=== PATIENT | female | born 1975 | race Caucasian/White ===

== ENCOUNTER 2016-09-26 23:19 | Emergency (ER) | payer BC, SELFPAY ==
[2016-09-26] MEDS ORDERED: Lidocaine 1% 20 ML MDV ONE (23:36)
[2016-09-26] MEDS ORDERED: Adacel (T-DAP) 0.5 ML VIAL ONE (23:58)
[2016-09-27] MEDS ORDERED: Cephalexin 500 MG CAP ONE (00:16)
[2016-09-27] MEDS ORDERED: Ibuprofen 600 MG TAB ONE (00:24)
--- NOTE | 2016-09-27 00:24 | ERRECORD ---
[facility] EMERGENCY RECORD HPI ABSCESS (23:53 ALMO) CHIEF COMPLAINT: Patient presents for evaluation of swelling, Patient presents for evaluation of pain. HISTORIAN: History provided by patient. LOCATION: Symptoms are localized, most severe to R thumb. QUALITY: Pain is sharp in nature. SEVERITY: Maximum severity of symptoms mild, Currently symptoms are moderate. TIME COURSE: Gradual onset of symptoms, 1, weeks ago, Symptoms are worsening. ASSOCIATED WITH: No associated chills, Associated with drainage, No associated fever, Associated with warmth. EXACERBATED BY: Patient's condition exacerbated by nothing. RELIEVED BY: Patient's condition relieved by nothing. TETANUS: Tetanus status up to date. ROS (23:55 ALMO) CONSTITUTIONAL: Historian denies chills, denies fever. GI: Historian denies nausea, denies vomiting. ALLERGIC/IMMUNOLOGIC: Historian denies frequent infections. NOTES: All systems reviewed, negative except as described above. PAST MEDICAL HISTORY (23:25 MDEB) MEDICAL HISTORY: Flu vaccine not up to date, Tetanus immunization up to date, Past medical history includes neurological disease, ischemic cerebral vascular accident, 2010. FEMALE SURGICAL HISTORY: Surgical history of section, Notes: x1, Surgical history of tonsillectomy, Surgical history of appendectomy, Surgical history of hysterectomy. PSYCHIATRIC HISTORY: No previous psychiatric history. SOCIAL HISTORY: Patient drinks socially, every week, Patient denies drug use, Patient currently uses tobacco, Patient smokes 1 pack per day, Patient drinks socially, every week, Patient denies drug use, Patient currently uses tobacco, smokes cigarettes, Patient has smoked for 20 years, Patient smokes 1 pack per day. KNOWN ALLERGIES codeine sulfate: Source: Patient morphine (bulk): Source: Patient CURRENT MEDICATIONS No recorded medications VITAL SIGNS VITAL SIGNS: BP: 156/87, Pulse: 76, Resp: 17, Pain: 7, O2 sat: 100 on Room Air, Time: 09/26/2016 23:23. (23:23 MDEB) Temp: 97.9 (Oral), Time: 09/26/2016 23:27. (23:27 BCRI) PHYSICAL EXAM (23:56 ALMO) CONSTITUTIONAL: Vital signs reviewed. &a-1R&a+25V*p+0X*o4922X*c202B*c15G*c2P*p-0X&a-25V&a+1R Name: Angela Christie : 1975 F41 MedRec: [id number] AcctNum: [id number] Prepared: SunSep 27, 2016 00:34 by Interface Page 1 of 3 pMD [facility] EMERGENCY RECORD HEAD: Head exam included findings of head atraumatic, normocephalic. EYES: Pupils equally round and reactive to light. NECK: no cervical adenopathy. RESPIRATORY CHEST: Respiratory exam included findings of no respiratory distress. CARDIOVASCULAR: Cardiovascular exam included findings of heart rate regular rate and rhythm. NEURO: Neuro exam findings include patient oriented to person, place and time, no focal motor deficits. SKIN: R thumb edema, erythema, tender especially dista to DIP and on ulnar side of nail. LYMPHATIC: Lymphatic exam normal. MEDICATION ADMINISTRATION SUMMARY Drug Name: ibuprofen, Dose Ordered: 1 tab(s), Route: Oral, Status: Given, Time: 00:27 09/27/2016, Drug Name: cephALEXin, Dose Ordered: 2 tab(s), Route: Oral, Status: Given, Time: 00:23 09/27/2016, Drug Name: *Adacel(Tdap Adolesn/Adult)(PF), Dose Ordered: 0.5 mL, Route: Intramuscular, Status: Given, Time: 00:03 09/27/2016, *Additional information available in notes, Detailed record available in Medication Service section. DOCTOR NOTES (23:59 ALMO) TEXT: Paronychia I&D Preped with alcohol Digital block with lidocaine 1% without epi Incision through the cuticule into affected area with Scalpel N 11 Small pus obtained Patient tolerated well. EBL insignificant. PROBLEM LIST No recorded problems DIAGNOSIS (SunSep 27, 2016 00:13 ALMO) FINAL: PRIMARY: paronychia. PRESCRIPTION (SunSep 27, 2016 00:14 ALMO) cephALEXin: CAPSULE : 500 mg : ORAL : Quantity: 1 Unit: tab(s) Route: ORAL Schedule: every 6 hours Dispense: 28 Unit: tab(s) May substitute. Refills: No Refills . NOTES: No Refills. DISPOSITION PATIENT: Disposition Type: Discharge, Disposition: *Discharge Home, Condition: Good. (SunSep 27, 2016 00:12 ALMO) &a-1R&a+25V*p+0X*h1467P*c202B*c15G*c2P*p-0X&a-25V&a+1R Name: Angela Christie : 1975 1 MedRec: [id number] AcctNum: [id number] Prepared: SunSep 27, 2016 00:34 by Interface Page 2 of 3 pMD [facility] EMERGENCY RECORD Patient left the department. (SunSep 27, 2016 00:31 BCRI) Augustine: TAWNY=MD Dragan, Triston BCRI=PATRICIA Cuellar, Betty PACHECO=PATRICIA Chappell, Paola &a-1R&a+25V*p+0X*c7860R*c202B*c15G*c2P*p-0X&a-25V&a+1R Name: Angela Christie : 1975 2 MedRec: [id number] AcctNum: [id number] Prepared: SunSep 27, 2016 00:34 by Interface Page 3 of 3 pMD MTDD
--- NOTE | 2016-09-27 00:39 | PICIS ---
[facility] EMERGENCY RECORD TRIAGE (23:24 MDEB) TRIAGE NOTES: POSSIBLE CELLULITIS TO R THUMB X1 WEEK; PT DENIES DRAINAGE. (23:24 MDEB) PATIENT: NAME: Angela Christie, AGE: 41, GENDER: female, : Sun1975, TIME OF GREET: SunSep 26, 2016 23:20, PREFERRED LANGUAGE: Pashto, ETHNICITY: Not or , FALL RISK: NO, ECODE BILLING MAP: [facility], SSN: [id number], Zip Code: [address], KG WEIGHT: 70.76, , , PERSON ID: [id number], PCP: OOT. (23:24 MDEB) PHONE: . (23:38) COMPLAINT: INFECTION ON RIGHT THUMB. (23:24 MDEB) ADMISSION: URGENCY: 4 Non Urgent, ADMISSION SOURCE: Home, TRANSPORT: CAR, BED: TRIAGE. (23:24 MDEB) SIRS SCORING: Heart Rate 55-109 (0), Temp range 96.8-101.1 (0), respiratory rate 12-24 (0), Mental Status altered: no (0), Yes, Infection or Suspected Infection. (23:25 MDEB) TRIAGE SCREENING: Patient denies suicidal ideation, Patient denies presence of domestic violence. (23:25 MDEB) LMP: LMP: Hysterectomy. (23:25 MDEB) TREATMENTS IN PROGRESS: Treatments given Prehospital: [facility] AT 2200. (23:25 MDEB) PROVIDERS: TRIAGE NURSE: Paola Chappell RN. (23:24 MDEB) VITAL SIGNS: BP 156/87, Pulse 76, Resp 17, Pain 7, O2 Sat 100, on Room Air, Time 09/26/2016 23:23. (23:23 MDEB) PREVIOUS VISIT ALLERGIES: codeine sulfate, morphine (bulk). (23:24 MDEB) codeine sulfate, morphine (bulk). (23:25 MDEB) KNOWN ALLERGIES codeine sulfate: Source: Patient morphine (bulk): Source: Patient CURRENT MEDICATIONS No recorded medications VITAL SIGNS VITAL SIGNS: BP: 156/87, Pulse: 76, Resp: 17, Pain: 7, O2 sat: 100 on Room Air, Time: 09/26/2016 23:23. (23:23 MDEB) Temp: 97.9 (Oral), Time: 09/26/2016 23:27. (23:27 BCRI) NURSING ASSESSMENT: SKIN (23:28 BCRI) CONSTITUTIONAL: Complex assessment performed, Patient arrives ambulatory, Gait steady, History obtained from patient, Patient appears comfortable, Patient cooperative, Patient alert, Oriented to person, place and time, Skin warm, Skin dry, Skin normal in color, Mucous membranes pink, Mucous membranes moist, Patient is well-groomed, Patient complains of R thumb swelling, onset of s/s 1 week ago; denies known injury; denies biting nails/cuticles. SKIN: Inspection findings include redness, to R &a-1R&a+25V*p+0X*z1951T*c202B*c15G*c2P*p-0X&a-25V&a+1R Name: Angela Christie : 1975 F41 MedRec: [id number] AcctNum: [id number] Prepared: SunSep 27, 2016 00:34 by Interface Page 1 of 5 pMD [facility] EMERGENCY RECORD thumb, erythematous and hot to touch, Inspection findings include swelling, to r thumb, Notes: Swelling without drainage to base of R thumb; radial pulse palpable. NURSING PROCEDURE: DISCHARGE NOTE (SunSep 27, 2016 00:29 BCRI) DISCHARGE: Patient discharged to home, ambulating without assistance, family driving, accompanied by //partner, Summary of Care printed/ provided, Transition record given to patient, Discharge instructions given to patient, Simple or moderate discharge teaching performed, Prescriptions given and instructions on side effects given, Name of prescription(s) given: keflex, Above person(s) verbalized understanding of discharge instructions and follow-up care, Patient treated and evaluated by physician, Notes: pt states intention to complete full abx course. BELONGINGS: Belongings and valuables with patient at time of discharge include:, Belongings remain with patient, Valuables remain with patient. NURSING PROCEDURE: NURSE NOTES NURSES NOTES: Notes: 2nd triage completed by Betty RN; incorrectly documented under Paola RN. (23:27 BCRI) Notes: LAC tray and 1% plain lidocaine placed a bedside. (23:39 BCRI) Notes: ERMD at bedside completing incision and drainage. (SunSep 27, 2016 00:06 BCRI) MEDICATION ADMINISTRATION SUMMARY Drug Name: ibuprofen, Dose Ordered: 1 tab(s), Route: Oral, Status: Given, Time: 00:27 09/27/2016, Drug Name: cephALEXin, Dose Ordered: 2 tab(s), Route: Oral, Status: Given, Time: 00:23 09/27/2016, Drug Name: *Adacel(Tdap Adolesn/Adult)(PF), Dose Ordered: 0.5 mL, Route: Intramuscular, Status: Given, Time: 00:03 09/27/2016, *Additional information available in notes, Detailed record available in Medication Service section. MEDICATION SERVICE Adacel(Tdap Adolesn/Adult)(PF): Order: Adacel(Tdap Adolesn/Adult)(PF) (diphth,pertuss(acell),tet vac/preservative free) - Dose: 0.5 mL : Intramuscular Schedule: Now Notes: per protocol Read back and verified, Verbal Order Ordered by: Triston Archibald MD Entered by: Betty Cuellar RN SunSep 27, 2016 00:04 Documented as given by: Betty Cuellar RN SunSep 27, 2016 00:03 Patient, Medication, Dose, Route and Time verified prior to administration. &a-1R&a+25V*p+0X*e1619J*c202B*c15G*c2P*p-0X&a-25V&a+1R Name: Angela Christie : 1975 F41 MedRec: [id number] AcctNum: [id number] Prepared: SunSep 27, 2016 00:34 by Interface Page 2 of 5 pMD [facility] EMERGENCY RECORD IM immunization, Amount given: 0.5 ml, Medication administered to right deltoid, sander and buffer: Ratio pasteur, lot number: [id number], expiration: 11/01/18, Correct patient, time, route, dose and medication confirmed prior to administration, Patient advised of actions and side-effects prior to administration, Allergies confirmed and medications reviewed prior to administration, Patient in position of comfort, Side rails up, Cart in lowest position, Family at bedside, Info sheet given. cephALEXin: Order: cephALEXin (cephalexin monohydrate) - Dose: 2 tab(s) : Oral Schedule: Now Ordered by: Triston Archibald MD Entered by: Triston Archibald MD SunSep 27, 2016 00:16 Documented as given by: Betty Cuellar RN SunSep 27, 2016 00:23 Patient, Medication, Dose, Route and Time verified prior to administration. Amount given: 1 gram, Site: Medication administered P.O., Correct patient, time, route, dose and medication confirmed prior to administration, Patient advised of actions and side-effects prior to administration, Allergies confirmed and medications reviewed prior to administration, Patient in position of comfort, Side rails up, Cart in lowest position, Family at bedside, verbal order for 1 gram of Keflex from BETZY Archibald. ibuprofen: Order: ibuprofen - Dose: 1 tab(s) : Oral Schedule: Now Ordered by: Triston Archibald MD Entered by: Triston Archibald MD SunSep 27, 2016 00:25 Documented as given by: Betty Cuellar RN SunSep 27, 2016 00:27 Patient, Medication, Dose, Route and Time verified prior to administration. Amount given: 600 mg, Site: Medication administered P.O., Correct patient, time, route, dose and medication confirmed prior to administration, Patient advised of actions and side-effects prior to administration, Allergies confirmed and medications reviewed prior to administration, Patient in position of comfort, Side rails up, Cart in lowest position, Family at bedside, verbal order to give 600 mg PO per ERMD Archibald. HPI ABSCESS (23:53 ALMO) CHIEF COMPLAINT: Patient presents for evaluation of swelling, Patient presents for evaluation of pain. HISTORIAN: History provided by patient. LOCATION: Symptoms are localized, most severe to R thumb. QUALITY: Pain is sharp in nature. SEVERITY: Maximum severity of symptoms mild, Currently symptoms are moderate. TIME COURSE: Gradual onset of symptoms, 1, weeks ago, Symptoms are worsening. ASSOCIATED WITH: No associated chills, Associated with drainage, No associated fever, Associated with warmth. EXACERBATED BY: Patient's &a-1R&a+25V*p+0X*v6818A*c202B*c15G*c2P*p-0X&a-25V&a+1R Name: Angela Christie Mildred : 1975 F41 MedRec: [id number] AcctNum: [id number] Prepared: SunSep 27, 2016 00:34 by Interface Page 3 of 5 pMD [facility] EMERGENCY RECORD condition exacerbated by nothing. RELIEVED BY: Patient's condition relieved by nothing. TETANUS: Tetanus status up to date. ROS (23:55 ALMO) CONSTITUTIONAL: Historian denies chills, denies fever. GI: Historian denies nausea, denies vomiting. ALLERGIC/IMMUNOLOGIC: Historian denies frequent infections. NOTES: All systems reviewed, negative except as described above. PAST MEDICAL HISTORY (23:25 MDEB) MEDICAL HISTORY: Flu vaccine not up to date, Tetanus immunization up to date, Past medical history includes neurological disease, ischemic cerebral vascular accident, 2010. FEMALE SURGICAL HISTORY: Surgical history of section, Notes: x1, Surgical history of tonsillectomy, Surgical history of appendectomy, Surgical history of hysterectomy. PSYCHIATRIC HISTORY: No previous psychiatric history. SOCIAL HISTORY: Patient drinks socially, every week, Patient denies drug use, Patient currently uses tobacco, Patient smokes 1 pack per day, Patient drinks socially, every week, Patient denies drug use, Patient currently uses tobacco, smokes cigarettes, Patient has smoked for 20 years, Patient smokes 1 pack per day. PHYSICAL EXAM (23:56 ALMO) CONSTITUTIONAL: Vital signs reviewed. HEAD: Head exam included findings of head atraumatic, normocephalic. EYES: Pupils equally round and reactive to light. NECK: no cervical adenopathy. RESPIRATORY CHEST: Respiratory exam included findings of no respiratory distress. CARDIOVASCULAR: Cardiovascular exam included findings of heart rate regular rate and rhythm. NEURO: Neuro exam findings include patient oriented to person, place and time, no focal motor deficits. SKIN: R thumb edema, erythema, tender especially dista to DIP and on ulnar side of nail. LYMPHATIC: Lymphatic exam normal. EVENTS TRANSFER: Triage to Emergency Triage. (SunSep 26, 2016 23:24 MDEB) Emergency Triage to Main ED -03. (23:24 MDEB) Removed from Emergency Main ED -03. (SunSep 27, 2016 00:31 BCRI) DOCTOR NOTES (23:59 ALMO) TEXT: Paronychia I&D Preped with alcohol Digital block with lidocaine 1% without epi &a-1R&a+25V*p+0X*l1162E*c202B*c15G*c2P*p-0X&a-25V&a+1R Name: Angela Christie : 1975 F41 MedRec: [id number] AcctNum: [id number] Prepared: SunSep 27, 2016 00:34 by Interface Page 4 of 5 pMD [facility] EMERGENCY RECORD Incision through the cuticule into affected area with Scalpel N 11 Small pus obtained Patient tolerated well. EBL insignificant. PROBLEM LIST No recorded problems DIAGNOSIS (SunSep 27, 2016 00:13 ALMO) FINAL: PRIMARY: paronychia. DISPOSITION PATIENT: Disposition Type: Discharge, Disposition: *Discharge Home, Condition: Good. (SunSep 27, 2016 00:12 ALMO) Patient left the department. (SunSep 27, 2016 00:31 BCRI) INSTRUCTION (SunSep 27, 2016 00:13 ALMO) DISCHARGE: PARONYCHIA. FOLLOWUP: Follow up with Primary Care Physician as needed. SPECIAL: Follow-up with your PCP. PRESCRIPTION (SunSep 27, 2016 00:14 ALMO) cephALEXin: CAPSULE : 500 mg : ORAL : Quantity: 1 Unit: tab(s) Route: ORAL Schedule: every 6 hours Dispense: 28 Unit: tab(s) May substitute. Refills: No Refills . NOTES: No Refills. IMAGING *DISCHARGE INSTRUCTIONS RECEIPT: Image captured from scanner. (SunSep 27, 2016 00:30 BCRI) TETANUS CONSENT: Image captured from scanner. (SunSep 27, 2016 00:31 BCRI) *SUPPLY CHARGE SHEET: Image captured from scanner. (SunSep 27, 2016 00:31 BCRI) ADMIN (SunSep 27, 2016 00:14 [place]) DIGITAL SIGNATURE: MD Archibald Alberto. Augustine: TAWNY=MD Archibald Alberto BCRI=PATRICIA Cuellar, Betty PACHECO=PATRICIA Chappell, Paola &a-1R&a+25V*p+0X*d5745U*c202B*c15G*c2P*p-0X&a-25V&a+1R Name: Angela Christie : 1975 F41 MedRec: [id number] AcctNum: [id number] Prepared: Tom Sep 27, 2016 00:34 by Interface Page 5 of 5 pMD MTDD
== END 2016-09-27 00:30 | disposition home or self-care (01) ==
LOC: MADERS 23:19
DX: L03.011 Cellulitis of right finger (principal); F17.210 Nicotine dependence, cigarettes, uncomplicated; Z86.73 Personal history of transient ischemic attack (TIA), and cerebral infarction without residual deficits
CPT/HCPCS: 10060; 90471; 90715; J2001

== ENCOUNTER 2016-10-23 17:27 | Emergency (ER) | payer SELFPAY ==
[2016-10-23] MEDS ORDERED: Cephalexin 500 MG CAP ONE (19:19)
[2016-10-23] MEDS ORDERED: Sulfameth/Trimethoprim DS 800-160mg TAB ONE (19:19)
[2016-10-23] MEDS ORDERED: Naproxen 500 MG TAB ONE (19:19)
[2016-10-23] MEDS ORDERED: Acetaminophen/Codeine 30-300mg Tablet ONE (19:19)
== END 2016-10-23 20:20 | disposition home or self-care (01) ==
LOC: MADERS 17:27
DX: L03.012 Cellulitis of left finger (principal); F17.210 Nicotine dependence, cigarettes, uncomplicated
CPT/HCPCS: 99283